=== PATIENT | male | born 1965 | race Two or more races ===

== ENCOUNTER 2022-05-07 21:01 | Observation (INO) | payer BC, OTHER ==
[2022-05-07 21:41] LABS: #Basophils 0.1 thou/uL (0.0-0.2); #Eosinphils 0.2 thou/uL (0.0-0.7); #Lymphocytes 1.8 thou/uL (1.20-3.40); #Monocytes 0.7 thou/uL (0.11-0.59); %Eosinophils 2.4 % (0.0-10.0); %Lymphocytes 26.9 % (21.0-51.0); %Monocytes 10.1 % (0.0-10.0); %Neutrophils 59.6 % (42.0-75.0); Hemoglobin 14.6 g/dL (14.0-18.0); Mean Corpuscular HGB CONC 34.5 g/dL (32.0-36.0); Mean Corpuscular Hemoglobin 35.5 pg (27.0-31.0); Mean Platelet Volume 7.5 fL (7.4-10.4); Platelet Count 195 10x3/uL (130-400); Red Blood Cell (RBC) Count 4.12 mill/uL (4.70-6.10); White Blood Cell (WBC) Count 6.7 10x3/uL (4.8-10.8)
[2022-05-07 22:03] LABS: ALT (SGPT) 46 U/L (8-55); AST (SGOT) 35 U/L (5-34); Albumin 4.8 g/dL (3.5-5.0); Alkaline Phosphatase 68 U/L (40-110); Anion Gap 14 mmol/L (10-20); BUN (Urea Nitrogen) 8 mg/dL (8.4-25.7); Bilirubin, Total 0.7 mg/dL (0.2-1.2); Calc. Creatinine Clearance 0 mL/min (70-130); Calcium 10.3 mg/dL (7.8-10.44); Carbon Dioxide 24 mmol/L (22-29); Chloride 103 mmol/L (98-107); Estimated GFR 89; Globulin 2.9 g/dL (2.4-3.5); Glucose 104 mg/dL (70-105); Lipase 50 U/L (8-78); Potassium 3.8 mmol/L (3.5-5.1); Protein, Total 7.7 g/dL (6.0-8.3); Sodium 137 mmol/L (136-145)
[2022-05-07] MEDS ORDERED: Nitroglycerin 2% Ointment 1 INCH/1 GM Packet ONE (22:12)
[2022-05-07] MEDS ORDERED: Aspirin Chewable 81 MG TAB ONE (22:12)
[2022-05-08] MEDS ORDERED: Calcium Carbonate 500 MG ChewTAB PO PRN (00:46)
[2022-05-08] MEDS ORDERED: Senokot S 8.6-50 MG TAB PO PRN (00:46)
[2022-05-08] MEDS ORDERED: Acetaminophen 325 MG TAB PO PRN (00:46)
[2022-05-08] MEDS ORDERED: Ondansetron ODT 4 MG TAB PO PRN (00:46)
[2022-05-08 02:19] LABS: Troponin I Less than 0.010 ng/mL (< 0.028)
[2022-05-08 05:19] LABS: Troponin I Less than 0.010 ng/mL (< 0.028)
[2022-05-08] MEDS ORDERED: Aspirin Chewable 81 MG TAB ONE (08:22)
[2022-05-08] MEDS: Aspirin Chewable 81 MG TAB PO SCH (08:23)
[2022-05-08] MEDS ORDERED: Nicotine 14 MG PATCH TD PRN (12:14)
[2022-05-08 13:54] VITALS: BMI 35.6
[2022-05-08] MEDS ORDERED: FLU VACC QS2022-23(6MOS UP)/PF 60 MCG/0.5 ML SYRINGE IM ONE (18:00)
[2022-05-08] MEDS ORDERED: Atorvastatin Calcium 40 MG TAB PO SCH (21:00)
[2022-05-09] MEDS ORDERED: Atenolol 50 MG TAB PO SCH (09:00)
[2022-05-09] MEDS: Aspirin Chewable 81 MG TAB PO SCH (10:14)
[2022-05-09 12:35] VITALS: BP 129/82; TEMP 97.5
== END 2022-05-09 13:58 | disposition home or self-care (01) ==
LOC: ERS 21:01 → ERHOLD 23:06 → 2SW 05-08 13:29
PROVIDERS: ADMIT Internal Medicine; ATTEND Internal Medicine
DX: R07.89 Other chest pain (principal); K30 Functional dyspepsia; I10 Essential (primary) hypertension; E78.5 Hyperlipidemia, unspecified; Z87.891 Personal history of nicotine dependence; Z79.899 Other long term (current) drug therapy; Z88.4 Allergy status to anesthetic agent; Z20.822 Contact with and (suspected) exposure to COVID-19
CPT/HCPCS: 36415; 71045; 78452; 80053; 82550; 83690; 84484; 85025; 93005; 93017; 94760; A9500; G0378; J0153; U0003; U0005